=== PATIENT | male | born 1965 | race Asian ===

== ENCOUNTER 2019-12-16 07:14 | Inpatient (IN) | payer OTHER ==
[~2019-12-16] VITALS: Ht 170.2 cm; Wt 66.2 kg
[2019-12-16 07:46] LABS: Urine Bacteria NONE SEEN /hpf (None Seen); Urine Blood Negative /uL (Negative); Urine Mucus FEW (None Seen); Urine Specific Gravity 1.029 (1.001-1.035); Urine WBC 2 /hpf (0 - 3)
[2019-12-16 08:24] LABS: Basophils # (auto) 0 10 ^3/uL (0-0.2); Basophils % (auto) 0.1 % (0.0-2.0); Eosinophils # (auto) 0 10 ^3/uL (0-0.8); Eosinophils % (auto) 0.1 % (0.0-7.0); Hematocrit 49.1 % (41.0-53.0); Hemoglobin 16.4 g/dL (13.5-17.5); Lymphocytes # (auto) 0.8 10 ^3/uL (0.4-5.4); Lymphocytes % (auto) 8.2 % (10.0-50.0); Mean Corpuscular Hemoglobin 31.3 pg (28.0-32.0); Mean Corpuscular Hgb Conc. 33.5 g/dL (32.0-36.0); Mean Corpuscular Volume 93.3 fL (80.0-100.0); Monocytes # (auto) 0.2 10 ^3/uL (0-1.3); Monocytes % (auto) 2.5 % (0.0-12.0); Neutrophils # (auto) 8.9 10 ^3/uL (1.6-8.6); Neutrophils % (auto) 89.1 % (37.0-80.0); Nucleated Red Blood Cells % 0.2 %; Platelet Count (auto) 142 10^3/uL (140-450); Red Blood Cells 5.26 10^6/uL (4.5-5.90); Red Cell Distribution Width 13.8 % (11.8-14.3)
[2019-12-16 08:42] LABS: Albumin 3.8 g/dL (3.4-5.0); Potassium 4.5 mmol/L (3.5-5.1)
[2019-12-16 08:44] LABS: BUN/Creatinine Ratio 19.4
[2019-12-16] MEDS ORDERED: SODIUM CHLORIDE 0.9% 1,000 ML IV ONE (08:45)
[2019-12-16 08:47] LABS: Bilirubin, Total 0.6 mg/dL (0.2-1.0); Total Protein 7.4 g/dL (6.4-8.2)
[2019-12-16] MEDS ORDERED: LIDOCAINE VISCOUS 2% 15ML UD ONE (10:29)
[2019-12-16] MEDS ORDERED: HYDROcodone-ACET 5/325MG TAB PO PRN (10:30)
[2019-12-16] MEDS ORDERED: ALUM & MAG HYDROX-SIMETH LIQ(MAALOX) 30 ML PO PRN (10:30)
[2019-12-16] MEDS ORDERED: PANTOPRAZOLE 40 MG/10 ML VIAL INJ IV ONE (10:30)
[2019-12-16] MEDS ORDERED: MORPHINE SULF INJ 2 MG/ML SYRINGE 1ML IV PRN ×3 (10:30)
[2019-12-16] MEDS ORDERED: LORazepam 0.5 MG TAB PO PRN (10:30)
[2019-12-16] MEDS ORDERED: DOCUSATE SOD 100 MG CAP PO PRN (10:30)
[2019-12-16] MEDS ORDERED: ONDANSETRON HCL 4 MG/2 ML VIAL IV PRN (10:30)
[2019-12-16] MEDS ORDERED: ACETAMINOPHEN 325 MG TAB PO PRN (10:30)
[2019-12-16] MEDS ORDERED: metroNIDAZOLE 500MG/100ML 100 ML IV ONE (10:30)
[2019-12-16] MEDS ORDERED: cefTRIAXone 1GM/50ML D5W 50 ML IV ONE (10:30)
[2019-12-16] MEDS ORDERED: NITROGLYCERIN 0.4 MG SL TAB SL PRN ×2 (10:30)
[2019-12-16] MEDS ORDERED: LIDOCAINE VISCOUS 2% 15ML UD PO ONE (10:45)
[2019-12-16 10:55] LABS: Cholesterol 191 mg/dL (< 200)
[2019-12-16 10:59] LABS: HDL Cholesterol 71 mg/dL (40-59); LDL Cholesterol 102 mg/dL (< 100); Triglycerides 122 mg/dL (< 150)
[2019-12-16] MEDS: POTASSIUM CHLORIDE 20 MEQ in D5W/LACTATED RINGERS 1,000 ML IV SCH ×2 (11:19→20:39)
[2019-12-16] MEDS ORDERED: GASTROGRAFIN 120 ML SOL ONE (11:24)
[2019-12-16] MEDS ORDERED: ONDANSETRON HCL 4 MG/2 ML VIAL IV ONE (12:15)
[2019-12-16] MEDS: metroNIDAZOLE 500MG/100ML 100 ML IV SCH ×2 (13:53→23:13)
[2019-12-16 21:00] VITALS: BP 116/77
[2019-12-16 22:00] VITALS: BP 116/77
[2019-12-17] MEDS: POTASSIUM CHLORIDE 20 MEQ in D5W/LACTATED RINGERS 1,000 ML IV SCH ×2 (01:09→16:55)
[2019-12-17 05:00] VITALS: BP 104/64
[2019-12-17] MEDS: metroNIDAZOLE 500MG/100ML 100 ML IV SCH (05:28)
[2019-12-17 09:00] VITALS: BP 108/69
[2019-12-17] MEDS ORDERED: GASTROGRAFIN 120 ML SOL ONE (09:03)
[2019-12-17] MEDS ORDERED: PNEUMOCOCCAL VACC POLYS 25 MCG/0.5 ML VIAL IM ONE (10:00)
[2019-12-17] MEDS ORDERED: PANTOPRAZOLE 40 MG/10 ML VIAL INJ IV SCH (10:00)
[2019-12-17] MEDS ORDERED: cefTRIAXone 1GM/50ML D5W 50 ML IV ONE (12:15)
[2019-12-17 13:00] VITALS: BP 109/75
[2019-12-17 17:00] VITALS: BP 100/74
[2019-12-17 22:00] VITALS: BP 130/53
[2019-12-18] MEDS: POTASSIUM CHLORIDE 20 MEQ in D5W/LACTATED RINGERS 1,000 ML IV SCH (03:12)
[2019-12-18 05:00] VITALS: BP 107/75
[2019-12-18 09:00] VITALS: BP 98/64
[2019-12-18] MEDS ORDERED: cefTRIAXone 1GM/50ML D5W 50 ML IV SCH (09:00)
[2019-12-18 13:00] VITALS: BP 108/66
[2019-12-18 17:00] VITALS: BP 114/74
== END 2019-12-18 17:25 | disposition home or self-care (01) | DRG 247 ==
LOC: ER 07:14 → TELE 07:15 → TELE-WESTW 21:00 → WEST WING 12-17 14:55
PROVIDERS: ADMIT Hospitalist; ATTEND Internal Medicine
DX: K56.690 Other partial intestinal obstruction (principal); D72.829 Elevated white blood cell count, unspecified; F17.210 Nicotine dependence, cigarettes, uncomplicated; E86.0 Dehydration; K75.81 Nonalcoholic steatohepatitis (NASH); K56.41 Fecal impaction; K80.20 Calculus of gallbladder without cholecystitis without obstruction
CPT/HCPCS: 36415; 74176; 74250; 78226; 80053; 80061; 81001; 83036; 83605; 83690; 84484; 85025; 87040; 87086; 93005; C9113; G0378; J0696; J2405; J3490

== ENCOUNTER 2019-12-21 22:15 | Emergency (ER) | payer OTHER ==
[~2019-12-21] VITALS: Ht 165.1 cm; Wt 59.0 kg
[2019-12-22 00:31] LABS: Basophils # (auto) 0 10 ^3/uL (0-0.2); Basophils % (auto) 0.1 % (0.0-2.0); Eosinophils # (auto) 0.1 10 ^3/uL (0-0.8); Eosinophils % (auto) 1.2 % (0.0-7.0); Hematocrit 49.4 % (41.0-53.0); Hemoglobin 16.6 g/dL (13.5-17.5); Lymphocytes # (auto) 1.1 10 ^3/uL (0.4-5.4); Lymphocytes % (auto) 11.9 % (10.0-50.0); Mean Corpuscular Hemoglobin 31.4 pg (28.0-32.0); Mean Corpuscular Hgb Conc. 33.5 g/dL (32.0-36.0); Mean Corpuscular Volume 93.7 fL (80.0-100.0); Monocytes # (auto) 0.4 10 ^3/uL (0-1.3); Monocytes % (auto) 4.6 % (0.0-12.0); Neutrophils # (auto) 7.9 10 ^3/uL (1.6-8.6); Neutrophils % (auto) 82.2 % (37.0-80.0); Platelet Count (auto) 161 10^3/uL (140-450); Red Blood Cells 5.27 10^6/uL (4.5-5.90); Red Cell Distribution Width 13.8 % (11.8-14.3); White Blood Cell 9.6 10^3/uL (4.4-10.8)
[2019-12-22 00:50] LABS: Albumin 3.8 g/dL (3.4-5.0); Calcium 9.4 mg/dL (8.5-10.1); Potassium 3.7 mmol/L (3.5-5.1)
[2019-12-22 00:52] LABS: Bilirubin, Total 0.3 mg/dL (0.2-1.0); Total Protein 7.5 g/dL (6.4-8.2)
[2019-12-22 03:38] VITALS: BP 96/70
== END 2019-12-22 03:47 | disposition home or self-care (01) ==
LOC: ER 22:19
DX: K52.89 Other specified noninfective gastroenteritis and colitis (principal); F17.210 Nicotine dependence, cigarettes, uncomplicated
CPT/HCPCS: 36415; 74176; 80053; 82150; 83605; 83690; 85025

== ENCOUNTER 2024-05-21 09:27 | Emergency (ER) | payer OTHER ==
[~2024-05-21] VITALS: Ht 162.6 cm; Wt 65.9 kg
--- NOTE | 2024-05-21 10:36 | ED.PDOC ---
History of Present Illness HPI Comments 59-year-old male who comes in with chief complaint of headache. The patient states that the headaches at the top of the head. The patient denies any nausea, vomiting or diarrhea. The patient states that he had surgery on his neck approximately four weeks ago. This surgery was done in [place] and now he is having persistent headache. Despite using Advil as well as acetaminophen, the patient's pain still is a 9/10. He denies any blurred vision. He was able to ambulate into the emergency department's without any difficulty and has no lateral signs. Chief Complaint: Headache Time Seen by MD: 10:07 Reviewed Notes: Nurses Notes, Medications, Allergies (NKDA ) Allergies: Coded Allergies: NO KNOWN ALLERGIES (Unverified , 12/16/19) Home Meds No Active Prescriptions or Reported Meds Information Source: Patient Mode of Arrival: Ambulatory Severity: Moderate Timing: Weeks Duration: Since onset Prehospital treatment: None Location: Headache Associated signs and symptoms No nausea, vomiting or diarrhea Past Medical History PAST MEDICAL HISTORY: Denies Surgical History (Other): Surgery, intestinal surgery Family History Family History: Reviewed,noncontributory to illness Social History Smoker: Cigarettes Alcohol: Occasionally Drugs: Denies Drug Use Lives In: Home Constitutional: denies: chills, diaphoresis, fatigue, fever, malaise, sweats, weakness, others EENTM: denies: blurred vision, double vision, ear bleeding, ear discharge, ear drainage, ear pain, ear ringing, eye pain, eye redness, hearing loss, mouth pain, mouth swelling, nasal discharge, nose bleeding, nose congestion, nose pain, photophobia, tearing, throat pain, throat swelling, voice changes, others Respiratory: denies: cough, hemoptysis, orthopnea, SOB at rest, shortness of breath, SOB with excertion, stridor, wheezing, others Cardiovascular: denies: chest pain, dizzy spells, diaphoresis, Dyspnea on exertion, edema, irregular heart beat, left arm pain, lightheadedness, palpitations, PND, syncope, others Gastrointestinal: denies: abdomen distended, abdominal pain, blood streaked bowels, constipated, diarrhea, dysphagia, difficulty swallowing, hematemesis, m keyana, nausea, poor appetite, poor fluid intake, rectal bleeding, rectal pain, vomiting, others Genitourinary: denies: burning, dysuria, flank pain, frequency, hematuria, incontinence, penile discharge, penile sore, pain, testicle pain, testicle swelling, urgency, others Neurological: denies: dizziness, fainting, headache, left sided numbness, left sided weakness, numbness, paresthesia, pre-existing deficit, right sided numbness, right sided weakness, seizure, speech problems, tingling, tremors, weakness, others Musculoskeletal: denies: back pain, gout, joint pain, joint swelling, muscle pain, muscle stiffness, neck pain, others Integumetry: denies: bruises, change in color, change in hair/nails, dryness, laceration, lesions, lumps, rash, wounds, others Allergic/Immunocompromised: denies: Difficulty Healing, Frequent Infections, Hives, Itching, others Hematologic/Lymphatic: denies: anemia, blood clots, easy bleeding, easy bruising, swollen glands, others Endocrine: denies: excessive hunger, excessive sweating, excessive thirst, excessive urination, flushing, intolerance to cold, intolerance to heat, unexplained weight gain, unexplained weight loss, others Psychiatric: denies: anxiety, bipolar disorder, depression, hopeless, panic disorder, schizophrenia, sleepless, suicidal, others Physical Exam General Appearance: Moderate Distress HEENT: Normal ENT Inspection, Pharynx Normal, TMs Normal Neck: Full Range of Motion, Non-Tender, Normal, Normal Inspection Respiratory: Chest Non-Tender, Lungs Clear, No Accessory Muscle Use, No Respiratory Distress, Normal Breath Sounds Cardiovascular: No Edema, No JVD, No Murmur, No Gallop, Normal Peripheral Pulses, Regular Rate/Rhythm Breast Exam: Deferred Gastrointestinal: No Organomegaly, Non Tender, No Pulsatile Mass, Normal Bowel Sounds, Soft Genitalia: Deferred Pelvic: Deferred Rectal: Deferred Extremities: No calf tenderness, Normal capillary refill, Normal inspection, Normal range of motion, Non-tender, No pedal edema Musculoskeletal : Apperance: Normal Neurologic: Alert, 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 Was a procedure done?: No Differential Dx Considerations may include: Migraine headache, intracranial bleeding, CVA X-Ray, Labs, Meds, VS Vital Signs Date Time Temp Pulse Resp B/P (MAP) Pulse Ox O2 Delivery O2 Flow Rate FiO2 05/21/24 09:42 98.2 87 16 118/68 (85) [address] scan of the head shows: IMPRESSION: 1. 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 The main differential diagnosis is chordoma. Other etiology such as pituitary lesion, metastasis, chronic paranasal sinus disease or postoperative changes are in the differential diagnosis. Recommend further evaluation with dynamic pituitary MRI without and with IV contrast.Complete opacification of the left 2. Maxillary sinus absent medial wall that could be due to erosion or prior surgery. 3. No large acute territorial ischemia or intracranial hemorrhage. An IV Hep-Lock is being established. We did speak with the patient about his findings. At this time we are going to call another facility for higher level of care transfer. We did contact [facility] and they have accepted the patient for transfer The accepting physician is Dr. 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 Images Reviewed?: Images reviewed and evaluated by me Time of 1ST Reevaluation: 10:35 Reevaluation 1ST: Unchanged Patient Education/Counseling: Diagnosis, Treatment, Prognosis Family Education/Counseling: Diagnosis, Treatment, Prognosis Departure 1 Departure Time of Disposition: 11:25 Impression: Primary Impression: Intractable headache Qualified Codes: R51.9 - Headache, unspecified Additional Impression: Maxillary sinus mass Disposition: 51 HOSPICE/MEDICAL FACILITY Condition: Fair e-Prescriptions No Active Prescriptions or Reported Meds Critical Care Note Critical Care Time?: No Stability Stability form required: Yes Stable for transfer: Intended for transfer, To designated facility Heart Score Heart Score: Heart Score Response (Comments) Value History N/A 0 EKG N/A 0 Age N/A 0 Risk Factors N/A 0 Troponin N/A 0 Total 0 I personally scribed for PATRICIA GARNETT MD ([email or web address]) on 05/21/24 at 11:36. Electronically submitted by Mya Dsouza ([email or web address]). PATRICIA GARNETT MD May 21, 2024 10:36
--- NOTE | 2024-05-21 11:21 | DVH ---
EXAM: CT HEAD WITHOUT CONTRAST HISTORY: virgen COMPARISON: None TECHNIQUE: Axial images were obtained and reformatted in coronal and sagittal planes. All CT scans at this medical facility are performed using dose modulation techniques as appropriate t o a performed exam including the following: Automated exposure control was utilized; adjustment of th e MA and/or KV according to patient size; and use of iterative reconstruction technique. CT Dose: CTDI volume is 55.84 mGy. Dose-length product is 988.72 mGy*cm FINDINGS: Supratentorial Region: No evidence for large acute territorial ischemia. No intracranial hemorrhage is noted. Posterior Fossa: No acute abnormality. Brainstem: Unremarkable. Sellar/Suprasellar Region: Large, 3.9 x 2.7 x 3.2 cm lytic expansile mass of the superior clivus wit h erosion of the posterior sphenoid wall and sella turcica with extension to suprasellar region and m ass effect on the cavernous sinuses. Ventricles, Cisterns, Sulci: Age-appropriate. Orbits: Unremarkable. Paranasal Sinuses: Complete opacification of the partially seen left maxillary sinus. The medial wal l of the left maxillary sinus is partially absent that could be due to erosion or prior antrostomy. M ucoperiosteal thickening noted in the bilateral ethmoid sinuses, more prominent on the left side. Mil d inferior left frontal sinus mucosal thickening. Complete opacification of the bilateral sphenoid si nuses with absent posterior chand. Mastoid Air Cells: Unremarkable. Vasculature: Unremarkable. Bones/Soft Tissues: No acute abnormality. Other: None. IMPRESSION: 1. 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 The main differential diagnosis is chordoma. Other etiology such as pituitary lesion, metastasis, chroni c paranasal sinus disease or postoperative changes are in the differential diagnosis. Recommend furth er evaluation with dynamic pituitary MRI without and with IV contrast.Complete opacification of the l eft 2. Maxillary sinus absent medial wall that could be due to erosion or prior surgery. 3. No large acute territorial ischemia or intracranial hemorrhage.
[2024-05-21] MEDS: HYDROcodone-ACET 10/325MG TAB PO ONE (14:01)
[2024-05-21 14:14] VITALS: BP 138/88; PULSE 81; RESP 16; TEMP 98; O2SAT 97
== END 2024-05-21 13:30 | disposition hospice, inpatient (51) ==
LOC: ER 09:27
DX: R51.9 Headache, unspecified (principal); J34.89 Other specified disorders of nose and nasal sinuses; F17.210 Nicotine dependence, cigarettes, uncomplicated; Z98.890 Other specified postprocedural states
CPT/HCPCS: 70450